=== PATIENT | female | born 1975 | race African-American/Black ===

== ENCOUNTER 2025-09-01 12:37 | Inpatient (IN) | payer MEDICARE, OTHER ==
[~2025-09-01] VITALS: Ht 170.2 cm; Wt 110.2 kg
[2025-09-01] MEDS: VANCOMYCIN 1 GM in IV D5W 250 ML IV ONE (14:00)
[2025-09-01] MEDS: IV NS 0.9% 1,000 ML BAG IV ONE (14:00)
[2025-09-01 14:07] LABS: PLATELET COUNT (AUTO) 407 K/uL (150-450); RED BLOOD CELL COUNT(AUTO) 5.14 MIL/uL (4.0-5.2); RED CELL DISTRIBUTION WIDTH 24.4 % (11.5-15.0); WHITE BLOOD COUNT (AUTO) 11.3 K/uL (4.3-11.0)
[2025-09-01 14:32] LABS: CALCIUM, SERUM 9.3 mg/dL (8.5-10.1); CREATININE 0.9 mg/dL (0.6-1.3); SODIUM SERUM 137 mmol/L (136-145); UREA NITROGEN, BLOOD 13 mg/dL (7-18)
[2025-09-01 14:34] LABS: INR 0.98 (0.91-1.10)
[2025-09-01 14:41] LABS: LACTIC ACID 1.9 mmol/L (0.4-2.0)
[2025-09-01 14:47] LABS: ASPARTATE AMINOTRANSFERASE 8 U/L (15-37); TOTAL PROTEIN, SERUM 9.0 g/dL (6.4-8.2)
[2025-09-01] MEDS ORDERED: DEXTROSE 50%-WATER 50 ML DISP.SYRIN IV PRN (16:00)
[2025-09-01] MEDS ORDERED: HYDROCODONE/APAP 5/325MG TABLET PO PRN (16:00)
[2025-09-01] MEDS ORDERED: MAGNESIUM HYDROXIDE 30 ML UDC PO PRN (16:00)
[2025-09-01] MEDS ORDERED: ZOLPIDEM TARTRATE 5 MG TABLET PO PRN (16:00)
[2025-09-01] MEDS ORDERED: MAG HYDROX/AL HYDROX/SIMETH 30 ML UDC PO PRN (16:00)
[2025-09-01] MEDS ORDERED: DOSING PER PHARMACY-ZOSYN IV 1 EA EA XX PRN (16:00)
[2025-09-01] MEDS ORDERED: ONDANSETRON HCL/PF 4 MG/2 ML VIAL IVP PRN (16:00)
[2025-09-01] MEDS ORDERED: DOSING PER PHARMACY-VANCOMYCIN IV XX PRN (16:00)
[2025-09-01] MEDS ORDERED: Z GUARD REMEDY 4 OZ OINT TP PRN (16:00)
[2025-09-01 16:13] LABS: APPEARANCE,URINE CLEAR (CLEAR); BLOOD, URINE Trace-intact Ery/uL (NEGATIVE); LEUKOCYTE ESTERASE ,URINE Negative (NEGATIVE); UGLUCOSE >=1000 mg/dL (NEGATIVE)
[2025-09-01 16:19] LABS: NITRITE, URINE POSITIVE (NEGATIVE)
[2025-09-01 16:20] LABS: ADD URINE CULTURE YES; SQUAMOUS EPITHELIAL CELL,UR Moderate /HPF (None Seen)
[2025-09-01] MEDS: ZOSYN IVPB 3.375 G in IV D5W 50ml IV SCH (17:26)
[2025-09-01] MEDS: ENOXAPARIN SODIUM 40 MG/0.4 ML DISP.SYRIN SQ SCH (17:28)
[2025-09-01] MEDS: BLOOD SUGAR DIAGNOSTIC 1 EACH STRIP IN SCH (17:28)
[2025-09-01] MEDS: INSULIN REGULAR, HUMAN 100 UNIT/ML 3 ML VIAL SQ PRN (17:40)
[2025-09-01 18:00] VITALS: BP 137/86; TEMP 97.9; O2SAT 98
[2025-09-01 18:07] VITALS: BP 137/86; TEMP 97.9
[2025-09-01] MEDS: VANCOMYCIN HCL 1.25 GM in IV D5W 250 ML IV ONE (18:30)
[2025-09-01 20:00] VITALS: BP 137/88; TEMP 98.4; O2SAT 98
[2025-09-02] MEDS: INSULIN REGULAR, HUMAN 100 UNIT/ML 10 ML VIAL SQ ONE (00:27)
[2025-09-02] MEDS: VANCOMYCIN HCL 1.25 GM in IV D5W 250 ML IV SCH (04:49)
[2025-09-02] MEDS: PANTOPRAZOLE 40 MG TABLET.DR PO SCH (07:51)
[2025-09-02 08:00] VITALS: BP 126/77; TEMP 97.7; O2SAT 98
[2025-09-02 08:00] LABS: PLATELET COUNT (AUTO) 359 K/uL (150-450); RED BLOOD CELL COUNT(AUTO) 5.42 MIL/uL (4.0-5.2); RED CELL DISTRIBUTION WIDTH 24.5 % (11.5-15.0); WHITE BLOOD COUNT (AUTO) 9.1 K/uL (4.3-11.0)
[2025-09-02 08:43] LABS: CALCIUM, SERUM 8.6 mg/dL (8.5-10.1); CREATININE 0.7 mg/dL (0.6-1.3); PHOSPHORUS 3.3 mg/dL (2.5-4.9); SODIUM SERUM 131.0 mmol/L (136-145); UREA NITROGEN, BLOOD 10.0 mg/dL (7-18)
[2025-09-02 16:00] VITALS: BP 130/80; TEMP 97.7; O2SAT 100
[2025-09-02 20:00] VITALS: BP 115/83; TEMP 98.1; O2SAT 99
[2025-09-03] MEDS: ACETAMINOPHEN 325 MG TABLET PO PRN (02:26)
[2025-09-03 06:25] LABS: PLATELET COUNT (AUTO) 334 K/uL (150-450); RED BLOOD CELL COUNT(AUTO) 4.82 MIL/uL (4.0-5.2); RED CELL DISTRIBUTION WIDTH 22.9 % (11.5-15.0); WHITE BLOOD COUNT (AUTO) 7.6 K/uL (4.3-11.0)
[2025-09-03 06:42] LABS: ASPARTATE AMINOTRANSFERASE 6.0 U/L (15-37); CALCIUM, SERUM 8.4 mg/dL (8.5-10.1); CREATININE 0.7 mg/dL (0.6-1.3); PHOSPHORUS 3.5 mg/dL (2.5-4.9); SODIUM SERUM 132.0 mmol/L (136-145); TOTAL PROTEIN, SERUM 7.7 g/dL (6.4-8.2); UREA NITROGEN, BLOOD 11.0 mg/dL (7-18)
[2025-09-03 07:30] VITALS: BP 144/92; TEMP 97.7; O2SAT 98
[2025-09-03 16:00] VITALS: BP 139/91; TEMP 98.6; O2SAT 97
[2025-09-03 21:47] VITALS: BP 140/94; TEMP 98.2; O2SAT 97
[2025-09-03 21:58] LABS: URINE SODIUM, RANDOM 51 mmol/l (40-220)
[2025-09-04 08:22] VITALS: BP 139/97; TEMP 98; O2SAT 99
[2025-09-04 08:23] LABS: CALCIUM, SERUM 8.5 mg/dL (8.5-10.1); CREATININE 0.7 mg/dL (0.6-1.3); PHOSPHORUS 3.5 mg/dL (2.5-4.9); SODIUM SERUM 133.0 mmol/L (136-145); UREA NITROGEN, BLOOD 10.0 mg/dL (7-18)
[2025-09-04 20:00] VITALS: BP 143/107; TEMP 98.2; O2SAT 99
[2025-09-05 06:47] LABS: CALCIUM, SERUM 8.8 mg/dL (8.5-10.1); CREATININE 0.6 mg/dL (0.6-1.3); SODIUM SERUM 138.0 mmol/L (136-145); UREA NITROGEN, BLOOD 9.0 mg/dL (7-18)
[2025-09-05 08:37] VITALS: BP 138/92; TEMP 97.5; O2SAT 94
[2025-09-05] MEDS ORDERED: SULF1TAB48 PO (10:56)
[2025-09-05 20:00] VITALS: BP 149/112; TEMP 97.2; TEMP 97.5; O2SAT 99
[2025-09-06 08:00] VITALS: BP 132/58; TEMP 97.7; O2SAT 96
[2025-09-06 08:04] LABS: CALCIUM, SERUM 9.0 mg/dL (8.5-10.1); CREATININE 0.7 mg/dL (0.6-1.3); SODIUM SERUM 140.0 mmol/L (136-145); UREA NITROGEN, BLOOD 7.0 mg/dL (7-18)
== END 2025-09-06 10:56 | DRG 300 ==
LOC: ER 12:40 → MED 16:17
PROVIDERS: ATTEND Internal Medicine
DX: I87.313 Chronic venous hypertension (idiopathic) with ulcer of bilateral lower extremity (principal); L03.115 Cellulitis of right lower limb; L03.116 Cellulitis of left lower limb; L97.828 Non-pressure chronic ulcer of other part of left lower leg with other specified severity; L97.818 Non-pressure chronic ulcer of other part of right lower leg with other specified severity; E11.51 Type 2 diabetes mellitus with diabetic peripheral angiopathy without gangrene; I87.2 Venous insufficiency (chronic) (peripheral); D50.9 Iron deficiency anemia, unspecified; I10 Essential (primary) hypertension; E66.9 Obesity, unspecified; E11.42 Type 2 diabetes mellitus with diabetic polyneuropathy; Z79.4 Long term (current) use of insulin; M21.862 Other specified acquired deformities of left lower leg; Z68.38 Body mass index [BMI] 38.0-38.9, adult; E11.65 Type 2 diabetes mellitus with hyperglycemia; L85.3 Xerosis cutis
CPT/HCPCS: 36415; 71045-TC; 73590-TC; 73610-TC; 73630-TC; 80048-TC; 80053-TC; 80076-TC; 80202-TC; 81001; 82962-TC; 83605-TC; 83735-TC; 83935-TC; 84100-TC; 84300-TC; 84443-TC; 84484-TC; 84550-TC; 85025-TC; 85652-TC; 85730-TC; 86140-TC; 87040-TC; 87081-TC; 87086-TC; 97110-TC; 97530-TC; A4223; G0378; J1650; J1815; J2543; J3373; J7030; J7060